=== PATIENT | female | born 1955 | race Caucasian/White ===

== ENCOUNTER 2017-05-21 13:40 | Emergency (ER) | payer OTHER, MEDICARE ==
[~2017-05-21] VITALS: Ht 167.6 cm; Wt 99.8 kg
[~2017-05-21 13:40] MED LIST: ACYCLOVIR400 M1 PO; AUGMENTIN 500M500 MG PO; BENADRYL ALLERG25 MG PO; BENADRYL EXTRA1 CRE TOP; BUSPIRONE HCL30 M1 PO; Benadryl PO; CALCIUM + D3 E1 EACH PO; CIPRO 500MG TA500 MG PO; CIPROFLOXACIN500 MG PO; CYCLOSPORINE50 MG PO; DAILY MULTIPLE1 TAB PO; FISH OIL 1,0001 EACH PO; FLUVOXAMINE MAL50 MG PO; FLUVOXAMINE100 MG PO; LUVOX CR150 MG PO; MULTIVITAMIN1 SGL PO; MYTAB GAS80 MG PO; NYSTATIN100000 UNI PO; OXACILLIN2 G1 IV; PANTOPRAZOLE SO40 M1 PO; PREDNISONE20 M1 PO; QUETIAPINE FUM100 M1 PO; SEROQUEL100 M1 PO; SEROQUEL25 M1 PO; SEROQUEL50 MG PO; SIMETHICONE80 MG PO; TAMIFLU 75MG75 MG PO; TYLENOL 8 HOUR650 MG PO; VITAMIN B-121000 MC3 PO; ZYRTEC10 M3 PO
[2017-05-21 14:33] LABS: ABSOLUTE BASOPHIL COUNT 0 /CUMM (0.0-0.2); ABSOLUTE EOSINOPHIL COUNT 0 /CUMM (0.0-0.7); ABSOLUTE LYMPH COUNT 0.3 /CUMM (1.2-3.4)
--- NOTE | 2017-05-21 14:36 | ED GENERAL ADULT ---
History of Present Illness General Chief Complaint: General Adult Stated Complaint: BIBA FOR PLATELET INFUSION Source: patient, old records, EMS Exam Limitations: no limitations Vital Signs & Intake/Output Vital Signs & Intake/Output Vital Signs Date Time Temp Pulse Resp B/P B/P Pulse O2 O2 Flow FiO2 Mean Ox Delivery Rate 05/21 2044 98.2 82 16 139/79 98 Room Air 05/21 1915 98.3 87 16 150/82 97 Room Air 05/21 1850 98.1 86 16 140/81 97 Room Air 05/21 1835 98.1 81 17 142/91 97 Room Air 05/21 1832 97.8 87 16 130/80 97 Room Air 05/21 1713 97.9 89 16 132/83 97 Room Air 05/21 1648 97.8 89 17 126/79 97 Room Air 05/21 1353 97.8 100 16 130/75 97 Room Air Allergies Coded Allergies: Penicillins (UNKNOWN 04/14/15) feathers (UNKNOWN 04/14/15) orange juice (UNKNOWN 04/14/15) Cephalosporins (Intermediate, PRURITIC RASH 04/14/15) Uncoded Allergies: DUST (UNKNOWN 04/29/14) Reconcile Medications Acyclovir 400 MG TABLET 1 TAB PO BID ANTIBIOTIC, INFECTION (Reported) Buspirone HCl 30 MG TABLET 1 TAB PO BID ANXIETY (Reported) Calcium Carb & Citrate/Vit D3 (Calcium + D3 ER Tablet) 600 MG CALCIUM-500 UNIT TABLET.ER 1 TAB PO 1700 VITAMIN SUPPORT (Reported) Cetirizine HCl (Zyrtec) 10 MG TABLET 1 TAB PO QPM ALLERGIES (Reported) Cyanocobalamin (Vitamin B-12) 1,000 MCG TABLET 1 TAB PO DAILY VITAMIN SUPPORT (Reported) Fluvoxamine Maleate 50 MG TABLET 1 TAB PO BID ANXIETY (Reported) Nystatin 100,000 UNIT/ML ORAL.SUSP 6 ML PO TID UNKNOWN (Reported) [place]-3 Fatty Acids/Fish Oil (Fish Oil 1,000 MG Capsule) (Unknown Strength) CAPSULE (Unknown Dose) PO BID SUPPLEMENT (Reported) Pantoprazole Sodium 40 MG TABLET.DR 1 TAB PO DAILY GI (Reported) Prednisone 20 MG TABLET 3 TAB PO DAILY STEROID (Reported) Quetiapine Fumarate (Seroquel) 25 MG TABLET 1 TAB PO QPM MENTAL HEALTH ( Reported) Quetiapine Fumarate (Seroquel) 100 MG TABLET 1 TAB PO QPM MENTAL HEALTH ( Reported) Quetiapine Fumarate 100 MG TABLET 1 TAB PO BID MENTAL HEALTH (Reported) Triage Note: PT TO ED BY AMBULANCE FROM [facility] FOR PLATELET TRANSFUSION. EMS REPORT PLATELET COUNT 17. PT COMPLAINT FREE. Triage Nurses Notes Reviewed? yes Onset: Abrupt Duration: day(s): (1), constant Timing: recent history Injury Environment: home Severity: mild Severity Numbers: 1 No Modifying Factors: none Associated Symptoms: denies HPI: 62 past medical history of B and T cell lymphoproliferative disorder, non- Hodgkin's lymphoma, chronic neutropenia, hypertension, hyperlipidemia, GERD, depression intellectual disability presents brought in by ambulance after she had outpatient blood work performed today that showed she had a platelet count of 17,000. The patient was last seen in December at which time her platelet count was 10,000 requiring platelet transfusion. On arrival the patient denies any complaints she denies any recent bruising or bleeding no chest pain shortness of breath abdominal pain nausea vomiting. She is followed by oncologist Dr. Zamora at [facility] Past History Travel History Traveled to [place] past 21 day No Medical History Any Pertinent Medical History? 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 Other Medical Hx: Abscess/cellulitis---left axillary abscess s/p drainage, discharged on 4 weeks of oxacillin via PICC line on 07/08/14 History of MRSA: No History of VRE: No History of CDIFF: No Surgical History Surgical History: non-contributory Psychosocial History Who do you live with Patient/Self Services at Home Nursing What is your primary language Nepali Tobacco Use: Never used Daily Tobacco Use Amount/Type: =< 4 Cigarettes daily ETOH Use: denies use Illicit Drug Use: denies illicit drug use Family History Family History, If Any: Relation not specified for: *No pertinent family history Hx Contributory? No Review of Systems Review of Systems Constitutional: Reports: see HPI. Comments Review of systems: See HPI, All other systems negative. Constitutional, no chills no fever HEENT: no sore throat no congestion, no ear pain Cardiovascular: No chest pain , no palpitation Skin: no rashes, no change in skin Respiratory: No dyspnea no cough no sputum GI: No nausea no vomiting, no diarrhea, : No dysuria Muscle skeletal: No joint pain, no back pain Neurologic: , no headache Heme/endocrine: No bruising, no bleeding Immunology: No lymphadenopathy Physical Exam Physical Exam General Appearance: well developed/nourished, no apparent distress, alert Comments: Well-developed well-nourished person in no acute distress HEENT: Normal EENT exam; PERRL, EOMI, HEAD is atraumatic. moist mucous membranes. Neck: Supple, n normal range of motion Back: Full range of motion Cardiovascular: Regular rate and rhythms Respiratory: No respiratory distress. Patient speaking in full complete sentences. Breath sounds clear to auscultation bilaterally: NO W/R/R Abdomen: Soft, nontender nondistended Extremity: No edema, full range of motion of extremities Neuro: Alert oriented x3, motor sensory normal, There were no obvious focal neurologic abnormalities. Skin: No appreciable rash on exposed skin, skin is warm and dry. Psych: Mood and affect is normal, memory and judgment is normal. Core Measures ACS in differential dx? No CVA/TIA Diagnosis: No Sepsis Present: No Sepsis Focused Exam Completed? No Progress Differential Diagnoses I considered the following diagnoses in my evaluation of the patient: Thrombocytopenia and leukopenia anemia Plan of Care: Orders Procedure Date/time Status Regular Diet 05/22 D Active BLOOD PRODUCT PICKUP 05/21 1808 Active BLOOD PRODUCT PICKUP 05/21 1637 Active PLATELET DOSE (5 Units Pooled) 05/21 1437 Active PARTIAL THROMBOPLASTIN TIME 05/21 1422 Complete PROTHROMBIN TIME 05/21 1422 Complete COMPREHENSIVE METABOLIC PANEL 05/21 1406 Complete CBC WITHOUT DIFFERENTIAL 05/21 1406 Complete TYPE & SCREEN (NOT X-MATCH) 05/21 1406 Complete Laboratory Tests 05/21/17 1418: Anion Gap 9, Estimated GFR > 60, BUN/Creatinine Ratio 30.0 H, Glucose 186 H, Calcium 9.0, Total Bilirubin 0.5, AST 30, ALT 39, Alkaline Phosphatase 85, Total Protein 6.8, Albumin 3.7, Globulin 3.1, Albumin/Globulin Ratio 1.2, PT 11.1, INR 1.02, APTT 25, CBC w Diff NO MAN DIFF REQ, RBC 4.70, MCV 81.6, MCH 27.0, MCHC 33.0, RDW 15.5 H, MPV 10.6 H, Gran % 89.1 H, Lymphocytes % 7.5 L, Monocytes % 2.9, Eosinophils % 0.4, Basophils % 0.1, Absolute Granulocytes 4.1, Absolute Lymphocytes 0.3 L, Absolute Monocytes 0.1, Absolute Eosinophils 0, Absolute Basophils 0 I spoke with the on-call oncologist Dr. Hughes covering for Dr. Zamora Will give the patient 10 units platelets, he advised that the patient can be safely discharged at that time back to [facility] I spoke with the patient's power of bankruptcy attorney Sindy Rivera who is her cousin over the phone who consented for the platelet transfusion. Discussed with Dr. Rose agrees with plan patient has no complaints at this time. 1630-patient resting in no acute distress at this time pending platelet transfusion 1800 platelets infusing patient resting in no acute distress Initial ED EKG: none Departure Departure Disposition: STILL A PATIENT Condition: Stable Clinical Impression Primary Impression: Thrombocytopenia Referrals: Anita GARRIDO,Hellen Moseley (PCP/Family) Additional Instructions: Follow up with Dr Zamora. return with any conerns Departure Forms: Customer Survey General Discharge Information Critical Care Note Critical Care Note Critical Care Time: non-applicable
[2017-05-21 14:37] LABS: ABSOLUTE GRANULOCYTE CT 4.1 /CUMM (1.4-6.5); ABSOLUTE MONOCYTE COUNT 0.1 /CUMM (0.10-0.60); BASOPHIL % 0.1 % (0.0-2.0); EOSINOPHIL % 0.4 % (0-5); HEMATOCRIT 38.4 % (37-47); MEAN CORPUSCULAR VOLUME 81.6 FL (81.0-99.0); MEAN PLATELET VOLUME 10.6 FL (7.4-10.4); RBC DISTRIBUTION WIDTH 15.5 % (11.5-14.5); WHITE BLOOD CELL COUNT 4.6 /CUMM (4.8-10.8)
[2017-05-21 14:38] LABS: PLATELET COUNT 15 /CUMM (130-400)
[2017-05-21 14:47] LABS: GRANULOCYTE % 89.1 % (42.2-75.2)
[2017-05-21 15:08] LABS: PT 11.1 SEC (9.4-12.5); PTT 25 SEC (25-37)
[2017-05-21 20:45] VITALS: BP 139/79
== END 2017-05-21 20:59 ==
LOC: ERH 13:40
PROVIDERS: Physician Assistant Medical
DX: D69.6 Thrombocytopenia, unspecified (principal)
CPT/HCPCS: 96365; P9035